=== PATIENT | female | born 1990 | race Caucasian/White ===

== ENCOUNTER 2020-06-08 07:18 | Emergency (ER) | payer OTHER, SELFPAY ==
--- NOTE | ~2020-06-08 | US_ITS ---
EXAMINATION: US abdomen limited DATE: 06/08/2020 08:29 INDICATION: Epigastric abdominal pain. TECHNIQUE: Multiple grayscale and Doppler ultrasound images of the abdomen were obtained. COMPARISON: None FINDINGS: The visualized portions of the head, body, and tail of the pancreas are normal. There is di ffuse hepatic steatosis. There is normal flow in main portal vein. The gallbladder is normal in size and contains gallstones. No gallbladder wall thickening or sonographic Champion sign. The common duct i s normal and measures 4 mm. IMPRESSION: 1. Cholelithiasis. No evidence of acute cholecystitis. 2. Diffuse hepatic steatosis. Reviewed, dictated and finalized at location A. [facility]
[2020-06-08 07:25] VITALS: BP 142/87; PULSE 96; RESP 18; TEMP 36.2; O2SAT 100
--- NOTE | 2020-06-08 07:36 | ED.ABDPAIN ---
HPI - Abdominal Pain General Chief Complaint: Abdominal Pain Stated Complaint: ABD PAIN X3D Time Seen by Provider: 06/08/20 07:23 Source: patient Mode of arrival: ambulatory Limitations: no limitations History of Present Illness HPI narrative: Patient is a 29 year old female who presents for evaluation of epigastric pain. This pain has been intermittent for 3 days. This episode woke her up a 4 am this morning. She describes her pain like if you were doing a plank . She denies associated vomiting, diarrhea or fever. She reports feels nauseated with the pain. She is unsure if anything makes it worse. She has been taking tylenol for her pain. PAin is rated 4/10. Related Data Allergies Allergy/AdvReac Type Severity Reaction Status Date / Time Antihistamines - Alkylamine Allergy Hives Verified 06/08/20 13:34 Review of Systems Review of Systems: All systems reviewed & are unremarkable except as noted in HPI and below PMFSH Past Medical History Medical History History of depression Surgical History Surgical History Hx of tonsillectomy Family History Family History Mother Heart disease Social History Social History (Updated 06/08/20 @ 13:36 by Nicki Oliver CMA) Years smoked: 12 Smoking status: Former smoker Alcohol intake: current Alcohol use details: social Living arrangements: with friend(s) Occupation/Education: occupation Additional occupation/education comments: Teacher Exam Const: General: alert Nutritional Appearance: obese Eyes: EOM: EOMs intact bilaterally Chest: Chest palpation & inspection: normal inspection of the chest Resp: Effort & Inspection: normal respiratory effort and no retractions Auscultation: clear to auscultation bilaterally Cardio: Rate: regular rate Rhythm: regular rhythm Heart sounds: no murmurs GI: GI Palp: Yes Soft to palpation, Yes Tenderness to palpation present (GI) (epigastric) and No Guarding due to palpation present (GI) Auscultation: normal bowel sounds Back/Spine/Pelvis: Back: no CVA tenderness Skin: General skin exam: normal color Rashes: no rashes Neuro: General: patient oriented x3 Psych: Mental Status: mental status grossly normal Affect: normal affect Course Reevaluation(s) Reevaluation #1: I Discussed with patient labs and ultrasound. She reports her pain has resolved. She has no abdominal tenderness. I discussed follow up with surgeon. Date: 06/08/20 Time: 10:00 Consultations Consultation #1: I discussed case with DR. Marks who states he can see patient this week. He recommends placing on 5 days of antibiotics and low fat diet. Date: 06/08/20 Time: 10:30 Vital Signs Vital signs: Vital Signs Temperature 97.2 F L 06/08/20 07:25 Pulse Rate 96 06/08/20 07:25 Respiratory Rate 18 06/08/20 07:25 Blood Pressure 142/87 H 06/08/20 07:25 Pulse Oximetry 100 06/08/20 07:25 Temperature 97.2 F L 06/08/20 07:25 Pulse Rate 89 06/08/20 10:50 Respiratory Rate 17 06/08/20 10:50 Blood Pressure 140/72 06/08/20 10:50 Pulse Oximetry 100 06/08/20 10:50 MDM - Abdominal Pain Lab Data Attestation: I reviewed the patient's lab results. Result diagrams: 06/08/20 07:47 06/08/20 08:57 Labs: Lab Results 06/08/20 06/08/20 06/08/20 Range/Units 07:47 07:47 08:57 WBC 13.7 H (4.5-10.0) K/mm3 RBC 4.54 (4.2-5.4) M/mm3 Hgb 12.3 (12.0-15.0) g/dL Hct 38.0 (37.0-47.0) % MCV 83.7 (80-100) fl MCH 27.1 (26-34) pg MCHC 32.4 (32-36) g/dl RDW 14.2 (11.5-14.5) % Plt Count 352 (150-375) k/mm3 MPV 9.6 (7.4-10.4) fl Immature Gran % (Auto) 0.4 (0-0.5) % Neut % (Auto) 59.7 (45.5-73.1) % Lymph % (Auto) 30.6 (18.3-44.2) % Hemphill % (Auto)
[2020-06-08 07:55] LABS: Basophils Absolute Auto 0.1 K/mm3 (0.0-0.1); Basophils Percent Auto 0.4 % (0.2-1.2); Eosinophils Absolute Auto 0.3 K/mm3 (0-0.3); Eosinophils Percent Auto 2.5 % (0-4.4); Hemoglobin 12.3 g/dL (12.0-15.0); Immature Granulocyte Absolute 0.05 K/mm3 (0.00-0.031); Immature Granulocyte Percent A 0.4 % (0-0.5); Lymphocytes Absolute Auto 4.19 K/mm3 (0.9-3.2); Lymphocytes Percent Auto 30.6 % (18.3-44.2); Mean Corpuscular HGB Conc 32.4 g/dl (32-36); Mean Corpuscular Hemoglobin 27.1 pg (26-34); Mean Corpuscular Volume 83.7 fl (80-100); Mean Platelet Volume 9.6 fl (7.4-10.4); Monocytes Absolute Auto 0.9 K/mm3 (0.1-0.6); Monocytes Percent Auto 6.4 % (2.6-8.5); Neutrophils Absolute Auto 8.2 K/mm3 (1.3-6.7); Neutrophils Percent Auto 59.7 % (45.5-73.1); Platelet Count Result 352 k/mm3 (150-375); Red Blood Count 4.54 M/mm3 (4.2-5.4); Red Cell Distribution Width 14.2 % (11.5-14.5); White Blood Count 13.7 K/mm3 (4.5-10.0)
[2020-06-08 07:57] LABS: Add Urine Microscopic? NO; Appearance Urine Clear (Clear); Bilirubin Urine Negative (Negative); Blood Urine Negative (Negative); Color Urine Yellow (Yellow); Glucose Urine UA Negative (Negative); Ketones Urine Negative (Negative); Leukocyte Esterase Ur Negative LEU/UL (Negative); Nitrate Urine Negative (Negative); Protein Urine Negative (Negative); Specific Grav Ur 1.015 (1.001-1.035); Urobilinogen Urine Negative mg/dL (<2.0)
[2020-06-08] MEDS: KETOROLAC 30 MG/ML VIAL (*BKC) IV PUSH (08:09)
[2020-06-08 09:19] LABS: Alanine Aminotransferase 26 U/L (4-35); Albumin Level 4.2 g/dL (3.5-5.1); Alkaline Phosphatase 90 U/L (38-126); Anion Gap 8 mmol/L (8-16); Aspartate Amino Transferase 26 U/L (14-36); Bilirubin,Total 0.3 mg/dL (0.2-1.3); Blood Urea Nitrogen 11 mg/dL (7-17); Calcium 9.2 mg/dL (8.4-10.2); Carbon Dioxide 26 mmol/L (22-30); Chloride 104 mmol/L (98-107); Estimated CRCL calculation 182 ml/min; Estimated Glomerular Filt Rate > 60; Glucose 109 mg/dL (65-105); Lipase 130 U/L (23-300); Potassium 4.4 mmol/L (3.4-5.0); Sodium 138 mmol/L (137-145)
[2020-06-08 10:50] VITALS: BP 140/72; PULSE 89; RESP 17; O2SAT 100
== END 2020-06-08 10:51 | disposition home or self-care (01) ==
PROVIDERS: Emergency Provider General Practice
DX: K80.20 Calculus of gallbladder without cholecystitis without obstruction (principal); D72.829 Elevated white blood cell count, unspecified; K76.0 Fatty (change of) liver, not elsewhere classified; F32.9 Major depressive disorder, single episode, unspecified
CPT/HCPCS: 36415; 76705; 80053; 81003; 81025; 83690; 85025; 96374; 99284; J1885

== ENCOUNTER → 2020-06-13 01:17 | Outpatient (CLI) | payer OTHER, SELFPAY ==
[2020-06-13 18:28] LABS: SARS-CoV-2 RNA PCR Negative
== END ==
PROVIDERS: Visit Provider Surgery
DX: Z01.812 Encounter for preprocedural laboratory examination (principal); Z20.822 Contact with and (suspected) exposure to COVID-19
CPT/HCPCS: C9803; U0003; U0005

== ENCOUNTER 2020-06-13 08:39 | Outpatient (CLI) | payer OTHER, SELFPAY ==
[2020-06-13 09:22] LABS: Alanine Aminotransferase 28 U/L (4-35); Albumin Level 4.3 g/dL (3.5-5.1); Alkaline Phosphatase 91 U/L (38-126); Amylase 68 U/L (30-110); Aspartate Amino Transferase 34 U/L (14-36); Bilirubin,Total 0.3 mg/dL (0.2-1.3); Lipase 88 U/L (23-300)
== END 2020-06-13 08:40 | disposition home or self-care (01) ==
PROVIDERS: Visit Provider Surgery
DX: Z01.812 Encounter for preprocedural laboratory examination (principal); K80.20 Calculus of gallbladder without cholecystitis without obstruction
CPT/HCPCS: 36415; 80076; 82150; 83690

== ENCOUNTER 2020-06-16 00:28 | Day surgery (SDC) | payer OTHER, SELFPAY ==
[2020-06-10 16:58] VITALS: BMI 40.4
[2020-06-16] VITALS (7 sets, daily range): BP systolic 111–143; BP diastolic 73–94; PULSE 73–97; RESP 13–20; TEMP 36.2–36.4; O2SAT 97–99
[2020-06-16] MEDS: ACETAMINOPHEN 500 MG TABLET 1000 MG PO (06:17)
[2020-06-16] MEDS: KETOROLAC 15 MG/ML VIAL (*BKC) IV PUSH (06:18)
[2020-06-16] MEDS: LACTATED RINGERS 1,000 ML 30 ML IV CONT ×2 (06:18→09:18)
--- NOTE | 2020-06-16 07:17 | WPDANESEPPF ---
Anes - Initial Pre Proc Eval Procedure: Operation Date: 06/16/20 07:30 Proposed Procedures p Laparoscopic Cholecystectomy, Possible Intra Operative Cholangiogram, Possible Open - Ronald Marks MD Date/Time: 06/16/20 07:17 Surgeon: Ronald Marks MD Pre Op Diagnosis: chronic cholecystitis Patient Data Age: 29 Gender: F Height: 5 ft 7 in Weight: 117 kg Allergies Allergy/AdvReac Type Severity Reaction Status Date / Time Antihistamines - Alkylamine Allergy Hives Verified 06/16/20 07:18 Home Medications Medication Instructions Recorded Confirmed Type levofloxacin 750 mg PO DAILY #5 tablet 06/08/20 06/10/20 Rx omeprazole magnesium [Prilosec] 20 mg PO DAILY #30 ea 06/08/20 06/10/20 Rx acetaminophen 325 mg tablet 500 mg PO Q6H PRN tablet 06/09/20 06/10/20 History Patient hx anesthesia problems: none Family hx anesthesia problems: none PMFSH Past Medical History Medical History History of depression Surgical History Surgical History Hx of tonsillectomy Family History Family History Mother Heart disease Social History Social History Years smoked: 13 Smoking status: Former smoker Tobacco type: cigarettes Smoking end date: 11/04/19 Alcohol intake: current Substance use: never Living arrangements: with friend(s) Additional occupation/education comments: Teacher Gender identity (if verbalized by the patient): Female Sexual Orientation (if Verbalized by the Patient): Straight or Heterosexual Spiritual care concerns: No Anes - Eval Final PreProcedure Day of Procedure 06/16/20 07:17 Patient weight: morbidly obese Heart: regular rate and rhythm Lungs: clear to auscultation Airway: Mallampati scale class II (upper cap with minor chip) Neurological: alert and oriented Last oral intake: >/= 8 hours ASA classification: III Emergent: no Anesthetic plan: proceed Anesthesia type and monitoring: general ETT and standard monitoring Informed Consent: The patient's anesthetic plan and its attendant risks and benefits were discussed with the patient/family/POA. Questions were solicited and answers provided to the satisfaction of the patient/family/POA.
--- NOTE | 2020-06-16 07:17 | WPDHPUPDATE1 ---
History and Physical Update Update Date/Time: 06/16/20 07:17 History and Physical has been reviewed, including an updated exam of the patient. There are NO changes in the patient's condition. Risks, benefits, and alternatives have been discussed and questions answered. Patient agrees to proceed with procedure.
[2020-06-16] MEDS: ceFAZolin 2 GM/D5W 50 ML 2 GM/50 ML BAG IVPB (07:30)
[2020-06-16] MEDS: BUPIVACAINE/EPINEPHRINE 0.5% 30 ML VIAL INFILTRATE (08:06)
--- NOTE | 2020-06-16 09:09 | PM.PROC ---
Procedure Note - Detailed Date of procedure: 06/17/20 Pre-op diagnosis: chronic cholecystitis Chronic Cholecystitis with Cholelithiasis Post-op diagnosis: same Procedure performed: Laparoscopic Cholecystectomy Description of procedure: Patient was seen preoperatively in the holding area and risks, benefits and alternatives confirmed. Patient was taken to the operating room and general anesthesia was induced. A time out was then preformed with the surgery team confirming patient and site of surgery. The abdomen was prepped and draped in the usual sterile fashion. 0.5% Marcaine with epinepherine local anesthetic was infiltrated into the proposed line of incision in the umbilicus. Incision was made vertically in the umbilicus with an 11 blade knife. I dissected down to the midline fascia. The fascia was very thin at the depth of the umbilicus. I placed 2 stay sutures of O- Vicryl on either side of the mid-line fascia beneath the umbilicus and was then able to slide in the Alvarado cannula through the fascial defect into the peritoneum. First under low flow and then under high flow the abdomen was insufflated with carbon dioxide never exceeding a pressure of 14. Proposed sites of 5 mm ports in the subcostal area on the right were marked and then local anesthetic instilled into both skin and the tract for the port including the peritoneum. Three 5 mm trocars were then introduced under direct vision. The following trocars were introduced under direct vision: a 5 mm in the epigastrium and two 5 mm trocars along the right costal margin laterally in the subcostal area. There were no significant adhesions to the gallbladder. I then carefully used the L-shaped cautery and the [place] dissector to dissect out the triangle of Calot. I then was able to dissect out both the cystic duct and cystic artery and identify a window of safety. The gall bladder was grasped and the cystic duct and artery were dissected free and clipped with an 5 mm endo-clip senior scheduler. The cystic duct and artery were clipped with use of 2 clips on the patient's side 1 on the gallbladder side utilizing a 5 mm endoclip-senior scheduler. The cystic duct was then transected. The cystic artery was also transected at this point. The gall bladder was removed using electrocautery and then removed from the abdomen using a large 10 mm grasper via the umbilical incision. The trocars were removed visualizing hemostasis and the remaining gas evacuated. The large trocar site at the umbilicus was closed with use of the 2 stay sutures of 0 Vicryl mentioned above and also a figure of 8 O-Vicryl suture. The 2 stay sutures mentioned above on either side of the fascia were also tied together to help approximate this midline fascia. The skin incisions were closed with subcuticular suture of 4-0 Monocryl. Surgical glue then was applied to all the incisions. Patient tolerated the procedure well was taken to the recovery room in good condition. Anesthesia: GETA Surgeon: Ronald Marks MD Commercial Attorney: Tulio BERTRAND, OR audiology assistant Estimated blood loss (mL): 15 Drains: No Packing: No Pathology: yes (Gallbladder) Complications: No immediate complications Condition: stable Disposition: PACU Findings: Unremarkable gallbladder without much inflammation. Upon removal several small palpable stones within the gallbladder.
[2020-06-16] MEDS: ONDANSETRON HCL ODT 4 MG TABLET PO (11:03)
--- NOTE | 2020-06-16 11:07 | SUR.PHASEII ---
Patient is all ready just waiting for her ride.
== END 2020-06-16 11:10 | disposition home or self-care (01) ==
PROVIDERS: Visit Provider Surgery
PROC: 0FT44ZZ Resection of Gallbladder, Percutaneous Endoscopic Approach (ICD-10-PCS; CPT 47562; principal; 2020-06-16 07:30)
DX: K80.10 Calculus of gallbladder with chronic cholecystitis without obstruction (principal); Z87.891 Personal history of nicotine dependence; E66.01 Morbid (severe) obesity due to excess calories; Z68.39 Body mass index [BMI] 39.0-39.9, adult
CPT/HCPCS: 47562; 36415; 80076; 82150; 83690; 88304; A9270; C9803; J0690; J1100; J1170; J1885; J2250; J2405; J2704; J2710; J3010; J7120; U0003; U0005